=== PATIENT | female | born 1995 | race American Indian/Alaskan Native ===

== ENCOUNTER 2016-04-12 23:50 | Emergency (ER) | payer OTHER, MEDICAID ==
[2016-04-13 00:20] VITALS: BP 118/90
[2016-04-14] MEDS ORDERED: SODIUM BICARBONATE IV ONE (10:35)
[2016-04-14] MEDS ORDERED: ADRENALIN ONE (10:35)
== END 2016-04-13 02:32 | disposition left against medical advice (07) ==
LOC: ED 23:50
DX: M89.8X6 Other specified disorders of bone, lower leg (principal); Z53.21 Procedure and treatment not carried out due to patient leaving prior to being seen by health care provider
CPT/HCPCS: J0171